=== PATIENT | male | born 1980 | race Caucasian/White ===

== ENCOUNTER 2017-01-08 08:32 | Emergency (ER) | payer BC, OTHER ==
[~2017-01-08] VITALS: Ht 190.5 cm; Wt 100.8 kg
[2017-01-08 08:36] VITALS: TEMP 36.8; Ht 190.5 cm; Wt 100.8 kg
[2017-01-08] MEDS ORDERED: IBUP-1050 PO (09:09)
--- NOTE | 2017-01-08 10:28 | DIAGNOSTIC IMAGING REPORT ---
RIGHT HIP 2 VIEWS CLINICAL HISTORY: Right hip pain. No reported history of trauma. FINDINGS: AP and frog-leg views of the right hip are obtained. No prior studies are available for comparison at the time of dictation. The skeletal structures are well mineralized. No fracture is seen. Os acetabuli are incidentally noted. The right sacroiliac joint is normal in appearance. The overlying soft tissues are within normal limits. IMPRESSION: No acute bony abnormality is seen in the right hip. Electronically signed by: Frank De La Garza M.D. 01/08/2017 10:27 AM Dictated Date/Time: 01/08/2017 10:23 AM
[2017-01-08] MEDS ORDERED: ONDANSETRON INJ 2 MG/ML 2 ML VIAL IV STA (11:07)
[2017-01-08] MEDS ORDERED: MoRPHine SULFATE 4 MG/ML 1 ML CARP\\VIAL IV STA (11:07)
[2017-01-08 11:57] LABS: BASO % 0.2 %; BASO ABS # 0.02 K/uL (0-0.2); COMPLETE YES; EOS % 1.4 %; HEMATOCRIT 45.8 % (42-52); IG% 0.2 %; LYMPH % 24.7 %; LYMPH ABS # 2.44 K/uL (1.2-3.4); MEAN CELL VOLUME 92.7 fL (80-100); MEAN CORPUSCULAR HEMOGLOBIN 31.8 pg (25-34); MEAN CORPUSCULAR HGB CONC 34.3 g/dl (32-36); MEAN PLATELET VOLUME 10.6 fL (7.4-10.4); MONO % 7.7 %; NEUT % 65.8 %; PLATELET COUNT 230 K/uL (130-400); RED BLOOD COUNT 4.94 M/uL (4.7-6.1); WHITE BLOOD COUNT 9.89 K/uL (4.8-10.8)
[2017-01-08 12:20] LABS: BUN/CREATININE RATIO 16.3 (10-20); C-REACTIVE PROTEIN 0.99 mg/dl (0-0.29); CREATININE 0.83 mg/dl (0.60-1.40); POTASSIUM 4.2 mmol/L (3.5-5.1)
[2017-01-08] MEDS ORDERED: OPTIRAY 320 IV PRN (13:15)
--- NOTE | 2017-01-08 14:02 | DIAGNOSTIC IMAGING REPORT ---
CT SCAN OF THE RIGHT HIP WITHOUT IV CONTRAST CLINICAL HISTORY: Acute right hip pain. COMPARISON STUDY: Radiographs of right hip dated 01/08/2017. TECHNIQUE: CT scan of the right hip is performed from the bony pelvis to the mid femoral shaft. Images are reviewed in the axial, sagittal, coronal planes. IV contrast was not administered for this examination. CT DOSE: 846.08 mGy.cm FINDINGS: The skeletal structures are well mineralized. There is no evidence of fracture or osteonecrosis involving the right hip or the visualized right hemipelvis. The joint space of the hip is well maintained. Os acetabuli are incidentally noted. There is mild bursal fluid around the right hip. The musculature of the right hip and bony pelvis is within normal limits. The bladder, prostate, and seminal vesicles are normal in appearance. There is no right pelvic sidewall or inguinal lymphadenopathy. Diverticulosis is noted in the partially imaged sigmoid colon. IMPRESSION: No acute bony abnormality is seen in the right hip. Dictated: 01/08/2017 1:08 PM Transcribed: 01/08/2017 2:01 PM [email or web address] Electronically signed by: Frank De La Garza M.D. 01/08/2017 2:17 PM Dictated Date/Time: 01/08/2017 1:08 PM
[2017-01-08] MEDS ORDERED: METH4PAK PO (14:33)
[2017-01-08] MEDS ORDERED: HYDR-5688 PO (14:33)
[2017-01-08 14:46] VITALS: BP 125/78; PULSE 80; O2SAT 95
--- NOTE | 2017-01-09 20:50 | EMERGENCY ROOM VISIT NOTE ---
ED Visit Note First contact with patient: 09:16 Chief Complaint: Right hip pain. History of Present Illness: Mr. Diaz is a 36-year-old white male who ambulates into the ED complaining of right hip pain. Patient reports an acute onset of right hip pain over the anterior lateral aspect of the hip. He describes this as a throbbing and sharp pain. He reports he is almost nearly pain-free at rest but when he believed in stable ambulatory or bear weight his pain escalates to a 6/10. There is radiation of this pain into his buttocks but not into his back or lower thigh or leg. He has not taken any medications for pain prior to arrival at the hospital. He denies any associated fevers, chills, sweats, skin eruptions, skin color changes , recent trauma, back pain, abdominal pain, urinary symptoms, hematuria, diarrhea, constipation, rectal bleeding, black/tarry stools, genital paresthesias, bowel and bladder dysfunction, lower extremity weakness/numbness/ tingling. Review of Systems: As noted above in history of present illness. 8 body systems reviewed with the patient as noted above. Past Medical History: Asthma, irritable bowel syndrome. Current Medications: Aleve. Allergies to Medications: Patient denies. Social History: Patient is currently employed; he feels safe in his home environment; he admits to tobacco and alcohol use. Physical Examination: Vital Signs: Date Time Temp Pulse Resp B/P Pulse Ox O2 Delivery O2 Flow Rate FiO2 01/08/17 14:46 80 18 125/78 95 01/08/17 13:44 78 18 124/64 96 Room Air 01/08/17 11:58 76 18 127/75 97 Room Air 01/08/17 10:33 73 16 128/85 98 Room Air 01/08/17 08:36 36.8 87 16 124/84 96 Room Air GENERAL: 36-year-old male in mild to moderate distress due to pain, nontoxic- appearing, afebrile and hemodynamically stable. NEUROLOGICAL: Awake, alert and oriented to person, place and time. Answering questions appropriately and following commands. Normal gait. Good hand eye coordination. No focal motor sensory deficits. SKIN: Warm, dry and pink. No soft tissue eruptions or trauma noted. BACK: No tenderness over the lumbar bony spine or throughout the lumbar paraspinous musculature. Full range of motion of the cervical spine. Negative straight leg raise test. No CVA tenderness. THORAX: Lungs sounds are clear to auscultation and equal bilaterally with symmetrical chest wall. No wheezing, rales or rhonchi. ABDOMEN: Flat, soft and nontender. Positive bowel sounds in all quadrants. No guarding, rigidity or organomegaly. PELVIS: Stable and nontender to compression and rock. RIGHT LOWER EXTREMITY: No shortening or malrotation. Mild diffuse tenderness throughout the hip joint and over the anterior thigh in the area of the quadriceps insertion on the pelvis. There is no local erythema or edema. He does have full range of motion in flexion, extension, abduction and abduction of the hip and flexion and extension of the knee. 2+ patellar and Achilles tendon reflexes intact and equal bilaterally. Throughout the leg and foot the skin was warm and pink and capillary refill is brisk. He is able to distinguish light sensations through all dermatomes. ED Course: Patient is assessed as noted above per Left Hip X-Rays: Were read by myself and the radiologist showing no acute fractures or dislocations. Laboratory Testing: Test 01/08/17 11:20 Range/Units White Blood Count 9.89 4.8-10.8 K/uL Red Blood Count 4.94 4.7-6.1 M/uL Hemoglobin 15.7 14.0-18.0 g/dL Hematocrit 45.8 42-52 % Mean Corpuscular Volume 92.7 80-100 fL Mean Corpuscular Hemoglobin 31.8 25-34 pg Mean Corpuscular Hemoglobin Concent 34.3 32-36 g/dl Platelet Count 230 130-400 K/uL Mean Platelet Volume 10.6 7.4-10.4 fL Neutrophils (%) (Auto) 65.8 % Lymphocytes (%) (Auto) 24.7 % Monocytes (%) (Auto) 7.7 % Eosinophils (%) (Auto) 1.4 % Basophils (%) (Auto) 0.2 % Neutrophils # (Auto) 6.51 1.4-6.5 K/uL Lymphocytes # (Auto) 2.44 1.2-3.4 K/uL Monocytes # (Auto) 0.76 0.11-0.59 K/uL Eosinophils # (Auto) 0.14 0-0.5 K/uL Basophils # (Auto) 0.02 0-0.2 K/uL RDW Standard Deviation 46.5 36.4-46.3 fL RDW Coefficient of Variation 13.6 11.5-14.5 % Immature Granulocyte % (Auto) 0.2 % Immature Granulocyte # (Auto) 0.02 0.00-0.02 K/uL Erythrocyte Sedimentation Rate 6 0-14 mm/hr Sodium Level 140 136-145 mmol/L Potassium Level 4.2 3.5-5.1 mmol/L Chloride Level 107 98-107 mmol/L Carbon Dioxide Level 29 21-32 mmol/L Anion Gap 4.0 3-11 mmol/L Blood Urea Nitrogen 14 7-18 mg/dl Creatinine 0.83 0.60-1.40 mg/dl Est Creatinine Clear Calc Drug Dose 148.5 ml/min Estimated GFR () 132.1 Estimated GFR (Non- 114.0 BUN/Creatinine Ratio 16.3 10-20 Random Glucose 87 70-99 mg/dl Calcium Level 9.0 8.5-10.1 mg/dl C-Reactive Protein 0.99 0-0.29 mg/dl Head CT: Was reviewed by myself and read by the radiologist and shows no acute bony abnormalities but there is mild bursitis around the hip Patient was hydrated with normal saline and received 4 mg of morphine IV for pain and 4 mg of Zofran IV. Patient was reassessed multiple times during his stay in the emergency department. Patient was fitted and trained for nonweightbearing crutches. Patient's case was reviewed with Dr. Rios; we agreed on diagnostic approach, treatment, disposition and plan. Patient was educated about tonight's findings and instructed on history and the plan; he verbalizes understanding and agreement with this plan. Clinical Impression: Bursitis of the right hip. Decision-Making: Initially my differential diagnosis I considered bursitis, tendinitis, muscle strain, septic arthritis and other causes. Disposition: Patient discharged home in stable condition; prior to departure he was reassessed and subjectively reported he was feeling better and rated his discomfort 4/10. Plan: Comfort measures including rest, ice, crutch use and a sliding pain medication scale of ibuprofen, acetaminophen and [place] were discussed with the patient; appropriate narcotic precautions were discussed with the patient. Patient was encouraged to follow-up with orthopedic physician for recheck if no better in 7-10 days. Patient was encouraged return the ED for worsening/uncontrolled pain, leg weakness/numbness/tingling or any new/concerning symptoms.
== END 2017-01-08 14:46 | disposition home or self-care (01) ==
LOC: C.EDB 08:33 → C.EDA 14:46
DX: M71.85 Other specified bursopathies, hip (principal); J45.909 Unspecified asthma, uncomplicated; K58.9 Irritable bowel syndrome, unspecified; F17.200 Nicotine dependence, unspecified, uncomplicated